=== PATIENT | female | born 1940 | race Caucasian/White ===

== ENCOUNTER → 2020-11-20 | Outpatient (CLI) | payer MEDICARE, OTHER ==
[~2020-11-20] MED LIST: AUGMENTIN 875-1 EACH PO
== END ==
LOC: HEART 5 15:19
DX: I48.91 Unspecified atrial fibrillation (principal); R00.1 Bradycardia, unspecified

== ENCOUNTER 2021-04-14 09:22 | Inpatient (IN) | payer MEDICARE, OTHER ==
[~2021-04-14] VITALS: Ht 157.5 cm; Wt 82.6 kg
[2021-04-14 10:17] LABS: HEMOGLOBIN 13.3 gm/dl (12.3-15.3); RED BLOOD COUNT 4.93 M/UL (4.00-5.10); WHITE BLOOD COUNT 9.9 K/UL (4.5-11.0)
[2021-04-14 10:39] LABS: BUN/CREATININE RATIO 16 (0-10)
[2021-04-14] MEDS ORDERED: COZAAR50 MG PO (12:36)
[2021-04-14] MEDS ORDERED: VITAMIN D21250 MCG PO (12:36)
[2021-04-14] MEDS ORDERED: PROTONIX 40 MG40 M1 PO (12:37)
[2021-04-14] MEDS ORDERED: SOTALOL80 MG PO (12:37)
[2021-04-14] MEDS ORDERED: KLONOPIN0.5 MG PO (12:37)
[2021-04-14] MEDS ORDERED: DICLOFENAC SOD100 GM TOP (12:38)
[2021-04-14] MEDS ORDERED: SYNTHROID112 MCG PO (12:38)
[2021-04-14] MEDS ORDERED: XARELTO 15 MG T15 MG PO (12:39)
[2021-04-15 04:16] LABS: HEMOGLOBIN 12.4 gm/dl (12.3-15.3); RED BLOOD COUNT 4.71 M/UL (4.00-5.10); WHITE BLOOD COUNT 8.4 K/UL (4.5-11.0)
[2021-04-15 04:34] LABS: BUN/CREATININE RATIO 18 (0-10)
[2021-04-15] MEDS ORDERED: HUMIBID LA TAB600 MG PO (11:48)
[2021-04-15] MEDS ORDERED: DECADRON6 MG PO (11:48)
[2021-04-15] MEDS ORDERED: COMBIVENT RESPIM4 GM INH ×2 (11:48→11:55)
[2021-04-15] MEDS ORDERED: BENZONATATE100 MG PO (11:48)
--- NOTE | 2021-04-15 12:15 | NUR ---
11:30 02 Sat 87% on room air.
== END 2021-04-15 17:38 | disposition home or self-care (01) | DRG 189 ==
LOC: ER1 09:22 → CDU 12:04 → MED SURG 4 12:04
PROVIDERS: Nurse Practitioner; ADMIT Internal Medicine
DX: J96.01 Acute respiratory failure with hypoxia (principal); E87.6 Hypokalemia; I48.91 Unspecified atrial fibrillation; J44.9 Chronic obstructive pulmonary disease, unspecified; I10 Essential (primary) hypertension; E11.9 Type 2 diabetes mellitus without complications; Z20.822 Contact with and (suspected) exposure to COVID-19; E03.9 Hypothyroidism, unspecified; Z79.01 Long term (current) use of anticoagulants; Z82.49 Family history of ischemic heart disease and other diseases of the circulatory system; Z79.899 Other long term (current) drug therapy; Z88.0 Allergy status to penicillin
CPT/HCPCS: 36415; 36600; 71045; 80048; 81001; 82550; 82553; 82803; 82962; 83036; 83735; 83874; 83880; 84132; 84484; 85025; 85379; 85652; 86140; 87040; 93005; 94640; 94664; 94760; 96374; 96376; 99285; J1100; Q9967; U0002

== ENCOUNTER → 2021-05-07 | Outpatient (CLI) | payer MEDICARE, OTHER ==
[~2021-05-07] MED LIST changes: +BENZONATATE100 MG PO; +COMBIVENT RESPIM4 GM INH; +COZAAR50 MG PO; +DECADRON6 MG PO; +DICLOFENAC SOD100 GM TOP; +HUMIBID LA TAB600 MG PO; +KLONOPIN0.5 MG PO; +PROTONIX 40 MG40 M1 PO; +SOTALOL80 MG PO; +SYNTHROID112 MCG PO; +VITAMIN D21250 MCG PO; +XARELTO 15 MG T15 MG PO
== END ==
LOC: EXRD 10:11
DX: R05.9 Cough, unspecified (principal); R53.1 Weakness
CPT/HCPCS: 71046

== ENCOUNTER → 2021-08-14 | Outpatient (CLI) | payer MEDICARE, OTHER ==
[2021-08-14 08:55] LABS: HEMOGLOBIN 12.1 gm/dl (12.3-15.3); RED BLOOD COUNT 4.65 M/UL (4.00-5.10); WHITE BLOOD COUNT 6.1 K/UL (4.5-11.0)
== END ==
LOC: LAB 08:18
PROVIDERS: Internal Medicine Cardiovascular Disease
DX: I48.91 Unspecified atrial fibrillation (principal); I10 Essential (primary) hypertension; E78.5 Hyperlipidemia, unspecified; R00.2 Palpitations; Z20.822 Contact with and (suspected) exposure to COVID-19
CPT/HCPCS: 36415; 80048; 85025; U0003

== ENCOUNTER → 2021-08-16 | Outpatient (CLI) | payer MEDICARE, OTHER | LOC: CATH 07:19 | DX: I48.19 Other persistent atrial fibrillation (principal); I10 Essential (primary) hypertension; I49.5 Sick sinus syndrome; E03.9 Hypothyroidism, unspecified; Z79.01 Long term (current) use of anticoagulants; Z79.899 Other long term (current) drug therapy; Z20.822 Contact with and (suspected) exposure to COVID-19 | CPT/HCPCS: 92960; 93005; J1200; J1742; J2250; J2310; J3010; J7040 ==

== ENCOUNTER 2021-08-23 23:05 | Emergency (ER) | payer MEDICARE, OTHER | END 2021-08-24 02:24 | disposition home or self-care (01) | LOC: ER1 23:05 | DX: S80.211A Abrasion, right knee, initial encounter (principal); S50.312A Abrasion of left elbow, initial encounter; S90.512A Abrasion, left ankle, initial encounter; I48.91 Unspecified atrial fibrillation; I10 Essential (primary) hypertension; Z88.0 Allergy status to penicillin; W10.9XXA Fall (on) (from) unspecified stairs and steps, initial encounter | CPT/HCPCS: 73080; 73564; 73630; 99283 ==

== ENCOUNTER 2021-08-28 03:31 | Emergency (ER) | payer MEDICARE, OTHER ==
[2021-08-28] MEDS ORDERED: IBUPROFEN600 MG PO (05:29)
== END 2021-08-28 06:47 | disposition home or self-care (01) ==
LOC: ER1 03:31
DX: M25.561 Pain in right knee (principal); I25.10 Atherosclerotic heart disease of native coronary artery without angina pectoris; I10 Essential (primary) hypertension; E03.9 Hypothyroidism, unspecified
CPT/HCPCS: 73562; 99283